=== PATIENT | female | born 1975 | race Caucasian/White ===

== ENCOUNTER → 2017-07-12 | Outpatient (CLI) | payer OTHER ==
--- NOTE | ~2017-07-12 | EXE ---
[facility] Erika M[employer] [place] [address] STRESS ECHOCARDIOGRAM Name: KHADIJAH MENARD Room #: REG ADRIANO Reddy#: [id number] Admission: 07/12/17 Attend Phys: Lewis Stein, Discharge: Date of : 73 Date of Service: 07/12/17 1541 Report #: [id number] THIS REPORT FOR: //name// APPROVED REPORT Exam: Stress Echocardiogram Indication: Chest pain Patient Location: Out-Patient Stress Nurse: Khadijah Degroot RN Room #: Echo lab Status: routine Ht: 5 ft 5 in HR: 55 bpm BP: 126/86 mmHg Medical History Medical History: Hyperlipidemia Cardiac Risk Factors: Hyperlipidemia, FHX of CAD Procedure The patient underwent an Exercise Stress Test using the Miko Protocol. Blood pressure, heart rate, and EKG were monitored. An Echocardiogram was performed by satellite installation technician in four stages in quad fashion. At peak stress, four selected images were obtained and placed side by side with resting images for comparison. Stress Test Details Stress Test: Exercise stress testing was performed using a Miko protocol. HR Resting HR: 55 bpm Max Heart Rate (APMHR): 178 bpm Max HR Achieved: 173 bpm Target HR (85% APMHR): 151 bpm % of APMHR: 97 Recovery HR: 93 bpm HR response to stress: Normal HR response to stress BP Resting BP: 126/86 mmHg Max BP: 184/108 mmHg Recovery BP: 166/94 mmHg ECG Clinical Reason for Termination: Maximal effort [facility] [address] [place] [address] STRESS ECHOCARDIOGRAM Name: KHADIJAH MENARD Room #: REG [facility] [id number] Admission: 07/12/17 Attend Phys: Lewis Stein, Discharge: Date of : 73 Date of Service: 07/12/17 1541 Report #: [id number] Stress Symptoms: Chest pain Exercise duration: 8 min 33 sec Highest Stage Achieved: Stage 3: 3.4 mph at 14% grade. Exercise capacity: 10.4 METs Overall Exercise Capacity for Age: Good Pre-Stress Echo The resting Echocardiogram showed normal left ventricular contractility with an estimated Ejection Fraction of about 55-60%. Post-Stress Echo The stress Echocardiogram showed normal left ventricular contractility with an estimated Ejection Fraction of about 65-70%. Clinical Normal augmentation of myocardial wall segments using a 17 segment model. Conclusion Clinical Response: Non-ischemic Exercise Capacity: Average Stress ECG Response: Non-ischemic Stress Echo Images: Non-ischemic Other Information Study Quality: Adequate <ELECTRONICALLY SIGNED> By: Lewis Stein MD, FACC 07/12/17 1541 1541 1541 Lewis Stein MD, FACC /INF
== END ==
LOC: CV 14:14
DX: R07.89 Other chest pain (principal)

== ENCOUNTER 2018-09-01 17:07 | Emergency (ER) | payer OTHER ==
[~2018-09-01] VITALS: Ht 162.6 cm; Wt 111.6 kg
[2018-09-01] MEDS ORDERED: LEXAPRO 10 MG T10 M2 PO (17:29)
[2018-09-01] MEDS ORDERED: SIMVASTATIN5 MG PO (17:30)
[2018-09-01 17:34] LABS: URINE BILIRUBIN NEGATIVE (Negative); URINE BLOOD NEGATIVE (Negative); URINE CLARITY CLEAR; URINE COLOR YELLOW; URINE GLUCOSE-RANDOM* NEGATIVE (Negative); URINE KETONES NEGATIVE (Negative); URINE NITRITE-REFLEX NEGATIVE (Negative); URINE PROTEIN (DIPSTICK) NEGATIVE (Negative); URINE SPECIFIC GRAVITY <= 1.005 (1.005-1.035); URINE UROBILINOGEN 0.2 E.U./dl (0.2-1.0)
[2018-09-01 17:36] LABS: URINE LEUKOCYTES-REFLEX TRACE (Negative)
[2018-09-01 18:14] LABS: ABSOLUTE NEUTROPHILS 6.9 thou/uL (1.4-8.2); BASOPHILS 0.5 % (0.0-2.0); EOSINOPHILS 0.8 % (0.0-3.0); HEMATOCRIT 39.3 % (37.0-47.0); HEMOGLOBIN 13.7 gm/dL (12.0-15.0); LYMPHOCYTES 17.2 % (24.0-44.0); MCV 82.9 fL (80.0-100.0); MONOCYTES 5.6 % (1.0-8.0); PLATELET COUNT 258 thou/uL (150-400); POLYS 75.9 % (36.0-66.0); RBC 4.73 mil/uL (4.20-5.00); WBC 9.1 thou/uL (4.0-11.0)
[2018-09-01 18:21] LABS: CALCIUM 9.4 mg/dL (8.5-10.1); CREATININE 0.5 mg/dL (0.6-1.0)
[2018-09-01 18:27] LABS: ALBUMIN 3.7 g/dL (3.4-5.0); TOTAL BILIRUBIN 0.5 mg/dL (<0.1-1.0); TOTAL PROTEIN 7.7 g/dL (6.4-8.2)
[2018-09-01] MEDS ORDERED: FLAGYL500 M1 PO (20:24)
[2018-09-01] MEDS ORDERED: AUGMENTIN 500-1 EACH PO (20:24)
[2018-09-01] MEDS ORDERED: TRAMADOL 50 MG50 MG PO (20:24)
[2018-09-01 20:52] VITALS: BP 125/84
== END 2018-09-01 21:07 | disposition home or self-care (01) ==
LOC: ER 17:07
PROVIDERS: Emergency Medicine
DX: K57.92 Diverticulitis of intestine, part unspecified, without perforation or abscess without bleeding (principal); K92.1 Melena; Z88.1 Allergy status to other antibiotic agents; Z88.2 Allergy status to sulfonamides

== ENCOUNTER 2018-09-28 21:56 | Emergency (ER) | payer OTHER ==
[~2018-09-28] VITALS: Ht 162.6 cm; Wt 104.3 kg
[~2018-09-28 21:56] MED LIST: AUGMENTIN 500-1 EACH PO; FLAGYL500 M1 PO; LEXAPRO 10 MG T10 M2 PO; SIMVASTATIN5 MG PO; TRAMADOL 50 MG50 MG PO
[2018-09-28] MEDS ORDERED: PROTONIX 20 MG20 M1 PO (22:18)
[2018-09-28 22:49] LABS: ABSOLUTE NEUTROPHILS 3.8 thou/uL (1.4-8.2); BASOPHILS 0.4 % (0.0-2.0); EOSINOPHILS 1.3 % (0.0-3.0); HEMATOCRIT 38.4 % (37.0-47.0); HEMOGLOBIN 13.6 gm/dL (12.0-15.0); LYMPHOCYTES 18.6 % (24.0-44.0); MCH 29.2 pg (26.0-34.0); MCHC 35.4 g/dL (28.0-37.0); MCV 82.5 fL (80.0-100.0); PLATELET COUNT 224 thou/uL (150-400); POLYS 73.7 % (36.0-66.0); RBC 4.65 mil/uL (4.20-5.00); RDW 13.1 % (10.5-14.5); WBC 5.2 thou/uL (4.0-11.0)
[2018-09-28 22:55] LABS: CALCIUM 8.3 mg/dL (8.5-10.1); CREATININE 0.6 mg/dL (0.6-1.0); POTASSIUM 3.1 mmol/L (3.5-5.1)
[2018-09-28 23:01] LABS: ALBUMIN 3.5 g/dL (3.4-5.0); TOTAL BILIRUBIN 0.7 mg/dL (<0.1-1.0); TOTAL PROTEIN 7.1 g/dL (6.4-8.2)
[2018-09-29] MEDS ORDERED: TESSALON PERLE100 MG PO (00:32)
[2018-09-29] MEDS ORDERED: KEFLEX500 M1 PO (00:32)
[2018-09-29] MEDS ORDERED: TRAMADOL 50 MG50 MG PO (00:32)
[2018-09-29] MEDS ORDERED: ZOFRAN ODT4 MG DISSOLVE (00:32)
[2018-09-29 01:32] VITALS: BP 131/74
== END 2018-09-29 01:25 | disposition home or self-care (01) ==
LOC: ER 21:56
PROVIDERS: Emergency Medicine
DX: E87.6 Hypokalemia (principal); R11.2 Nausea with vomiting, unspecified; R19.7 Diarrhea, unspecified; R05 Cough; R07.89 Other chest pain; K58.9 Irritable bowel syndrome, unspecified; Z87.19 Personal history of other diseases of the digestive system; Z88.1 Allergy status to other antibiotic agents; Z88.2 Allergy status to sulfonamides

== ENCOUNTER → 2021-02-03 | Outpatient (CLI) | payer OTHER ==
[~2021-02-03] MED LIST changes: +KEFLEX500 M1 PO; +PROTONIX 20 MG20 M1 PO; +TESSALON PERLE100 MG PO; +ZOFRAN ODT4 MG DISSOLVE
== END ==
LOC: SJCVCIMAG 10:50
PROVIDERS: ATTEND Internal Medicine Cardiovascular Disease
DX: R00.1 Bradycardia, unspecified (principal); R06.00 Dyspnea, unspecified; R07.89 Other chest pain; E78.5 Hyperlipidemia, unspecified; E66.9 Obesity, unspecified; Z88.2 Allergy status to sulfonamides; Z79.899 Other long term (current) drug therapy; Z86.16 Personal history of COVID-19; Z82.49 Family history of ischemic heart disease and other diseases of the circulatory system

== ENCOUNTER → 2021-03-14 | Outpatient (CLI) | payer OTHER | LOC: RAD 12:02 | PROVIDERS: ATTEND Internal Medicine | DX: J45.20 Mild intermittent asthma, uncomplicated (principal); Z86.16 Personal history of COVID-19 ==